=== PATIENT | female | born 1990 | race American Indian/Alaskan Native ===

== ENCOUNTER 2016-10-31 15:58 | Emergency (ER) | payer OTHER ==
[2016-10-31 16:27] VITALS: BMI 18.8
[2016-10-31 16:28] VITALS: RESP 18; TEMP 98.7; O2SAT 100
--- NOTE | 2016-10-31 16:56 | C.PDOC ---
History Of Present Illness 25 y/o female presents to ED with c/o persistent nausea, vomiting, and diarrhea for 8 days. Patient also reports associated chills. Notes LMP was 09/04/16 with recent positive test, a1. Patient also reports OB evaluation last week and was started on pre- vitamins. Notes associated lower abdominal cramping. Patient states she has been unable to tolerate PO. Denies fever, chills, chest pain, SOB, urinary symptoms, vaginal bleeding, or other associated symptoms. Time Seen by Provider: 10/31/16 16:31 Chief Complaint (Nursing): GI Problem History Per: Patient History/Exam Limitations: no limitations Onset/Duration Of Symptoms: Days Current Symptoms Are (Timing): Still Present Reports Recently: Treated By A Physician Recent travel outside of the [place]: No Past Medical History Reviewed: Historical Data, Nursing Documentation, Vital Signs Vital Signs: Last Vital Signs Temp 98.7 F 10/31/16 16:26 Pulse 92 H 10/31/16 18:11 Resp 18 10/31/16 18:11 BP 125/75 10/31/16 18:11 Pulse Ox 100 10/31/16 18:52 - Medical History PMH: Anemia - [facility] Procedures SUTURE OF LIP LACERATION (08/22/14) Family History: States: Unknown Family Hx - Social History Hx Tobacco Use: No Hx Alcohol Use: No Hx Substance Use: No - Immunization History Hx Tetanus Toxoid Vaccination: No Hx Influenza Vaccination: No Hx Pneumococcal Vaccination: No Review Of Systems Except As Marked, All Systems Reviewed And Found Negative. Constitutional: Negative for: Fever, Chills Cardiovascular: Negative for: Chest Pain Respiratory: Negative for: Cough, Shortness of Breath, Wheezing Gastrointestinal: Positive for: Nausea, Vomiting, Abdominal Pain, Diarrhea. Negative for: Constipation Genitourinary: Negative for: Dysuria, Hematuria, Vaginal Bleeding Skin: Negative for: Rash Physical Exam - Physical Exam Appears: Non-toxic, No Acute Distress Skin: Normal Color, Warm, Dry Head: Atraumatic, Normacephalic Oral Mucosa: Moist Chest: Symmetrical Cardiovascular: Rhythm Regular Respiratory: Normal Breath Sounds, No Rales, No Rhonchi, No Wheezing Gastrointestinal/Abdominal: Soft, No Tenderness, No Distention, No Guarding, No Rebound Back: Normal Inspection Extremity: Normal ROM, Capillary Refill (< 2 sec. ) Neurological/Psych: Oriented x3, Normal Speech, Normal Cognition ED Course And Treatment - Laboratory Results Result Diagrams: 10/31/16 16:58 10/31/16 16:58 O2 Sat by Pulse Oximetry: 100 (RA) Pulse Ox Interpretation: Normal - CT Scan/US 1st Trimester Ultrasound Other Rad Studies (CT/US): Radiology Report Reviewed CT/US Interpretation: Indication: with pain for 1 week. Comparison: None available. Technique: 1st trimester ultrasound. Findings: The uterus measures approximately 11.0 x 9.2 x 9.5 cm. Anteverted. Cervix length measures approximately 3.5 cm. There is a single intrauterine fetus present. The gestational sac measures 2.4 cm and is compatible with a gestational age of 7 weeks 0 days. The crown-rump length measures 1.6 cm and is compatible with a gestational age of 8 weeks 0 days. There is heart motion which measured 139 BPM. The right ovary measures 3.5 x 2.3 x 2.2 cm and contains 2.5 x 2.0 x 2.0 cm probable corpus luteum. The left ovary measures 3.5 x 1.4 x 2.2 cm. Blood flow was demonstrated to both ovaries. Impression: Live single intrauterine with estimated gestational age 7 weeks 4 days. heart rate 139 bpm. Advise an anomaly screen at 16-18 weeks gestational age. Probable 2.5 cm right corpus luteal cyst. Medical Decision Making Medical Decision Making: Plan: * Zofran, IVFs * Labs, Ultrasound * Reassess Progress: On re-evaluation, patient reports feeling better, with improvement of abdominal pain and nausea. Patient able to tolerate PO. Discussed ultrasound results with patient. Advised follow up with PMD/OB within 1-2 days for further evaluation. Disposition Counseled Patient/Family Regarding: Need For Followup - Disposition [facility] Disposition: HOME/ ROUTINE Disposition Time: 18:58 Condition: STABLE Additional Instructions: Your ultrasound shows 7 weeks Please take medication as needed for nausea Follow up with your shampooer Prescriptions: Doxylamine/Pyridoxine HCl (B6) [Luis Clements 10-10 mg Tablet] 1 each PO Q8 #14 tablet. Instructions: Hyperemesis Gravidarum (ED), Hypokalemia (DC) - POA Present On Arrival: None - Clinical Impression Clinical Impression: Hyperemesis gravidarum - PA / ASSISTANT GENERAL MANAGER / Resident Statement MD/DO has reviewed & agrees with the documentation as recorded. - Scribe Statement The provider has reviewed the documentation as recorded by the Miahibalisha Brown All medical record entries made by the Comfort were at my direction and personally dictated by me. I have reviewed the chart and agree that the record accurately reflects my personal performance of the history, physical exam, medical decision making, and the department course for this patient. I have also personally directed, reviewed, and agree with the discharge instructions and disposition.
[2016-10-31] MEDS ORDERED: Sodium Chloride 0.9% 1,000 ML ONE (16:59)
[2016-10-31] MEDS: Sodium Chloride 0.9% 500 ML IV ONE (17:02)
[2016-10-31 17:07] LABS: BASO % 0.2 % (0.0-2.0); EOS % 0.3 % (0.0-4.0); HEMATOCRIT 40.9 % (34.0-47.0); LYMPH # 1.3 K/uL (1.0-4.3); LYMPH % 23.7 % (20.0-40.0); MEAN CELL VOLUME 83.5 fL (81.0-99.0); MEAN CORPUSCULAR HEMOGLOBIN 28.6 pg (27.0-31.0); MEAN CORPUSCULAR HGB CONC 34.2 g/dL (33.0-37.0); MONO # 0.5 K/uL (0.0-0.8); MONO % 9.5 % (0.0-10.0); WHITE BLOOD COUNT 5.6 K/uL (4.8-10.8)
[2016-10-31 17:12] LABS: RBC URINE < 1 /hpf (0-3); URINE BACTERIA OCC (<OCC); URINE BILIRUBIN NEGATIVE (NEGATIVE); URINE BLOOD NEGATIVE (NEGATIVE); URINE COLOR Yellow (YELLOW); URINE GLUCOSE (UA) NORMAL (Normal); URINE KETONE 1+ mg/dL (NEGATIVE); URINE PROTEIN NEGATIVE (NEGATIVE); URINE UROBILINOGEN NORMAL mg/dL (0.2-1.0)
[2016-10-31 17:15] LABS: WBC URINE 3 /hpf (0-5)
[2016-10-31 17:17] LABS: CHLORIDE 95 mmol/L (98-107); SODIUM 133 mmol/L (132-148); URINE LEUKOCYTE ESTERASE NEGATIVE Leu/uL (Negative)
[2016-10-31 17:18] LABS: POTASSIUM 2.9 mmol/L (3.6-5.2)
[2016-10-31 17:20] LABS: ALB/GLOB RATIO 1.1 (1.0-2.1); ALKALINE PHOSPHATASE 58 U/L (38-126); ALT/SGPT 34 U/L (9-52); AST/SGOT 27 U/L (14-36); BLOOD UREA NITROGEN 5 mg/dL (7-17); CALCIUM 9.3 mg/dl (8.6-10.4); CARBON DIOXIDE 26 mmol/L (22-30); GFR AFRICAN-AMERICAN > 60; GLUCOSE,RANDOM 96 mg/dL (65-105); TOTAL PROTEIN 8.4 g/dL (6.3-8.3)
[2016-10-31] MEDS ORDERED: Potassium Chloride 20 mEq ER Tab PO ONE (17:46)
[2016-10-31] MEDS: Potassium Chloride 20 mEq ER Tab PO STA (18:10)
[2016-10-31 18:12] VITALS: BP 125/75; PULSE 92
--- NOTE | 2016-10-31 18:24 | US ---
Indication: with pain for 1 week Comparison: None available. Technique: 1st trimester ultrasound Findings: The uterus measures approximately 11.0 x 9.2 x 9.5 cm. Anteverted. Cervix length measures approximately 3.5 cm. There is a single intrauterine fetus present. The gestational sac measures 2.4 cm and is compatible with a gestational age of 7 weeks 0 days. The crown-rump length measures 1.6 cm and is compatible with a gestational age of 8 weeks 0 days. There is heart motion which measured 139 BPM. The right ovary measures 3.5 x 2.3 x 2.2 cm and contains 2.5 x 2.0 x 2.0 cm probable corpus luteum. The left ovary measures 3.5 x 1.4 x 2.2 cm. Blood flow was demonstrated to both ovaries. Impression: Live single intrauterine with estimated gestational age 7 weeks 4 days. heart rate 139 bpm. Advise an anomaly screen at 16-18 weeks gestational age Probable 2.5 cm right corpus luteal cyst.
== END 2016-10-31 18:58 | disposition home or self-care (01) ==
LOC: C.ER 15:58
DX: O21.0 Mild hyperemesis gravidarum (principal); Z3A.01 Less than 8 weeks gestation of pregnancy
CPT/HCPCS: 76801; 80053; 81001; 84702; 84703; 85025; 96374; 99284; J2405; J7040